=== PATIENT | female | born 1930 | race Caucasian/White ===

== ENCOUNTER 2017-04-07 20:17 | Inpatient (IN) | payer MEDICARE, MEDICAID ==
[~2017-04-07] VITALS: Ht 154.9 cm; Wt 65.8 kg
[2017-04-07 20:00] VITALS: BP 132/77
[2017-04-07] MEDS ORDERED: NA PHOS,M-B/NA PHOS,DI-BA ENEMA 118ML PR PRN (20:45)
[2017-04-07] MEDS ORDERED: HYDROCODONE/ACETAMINOPHEN 5/325MG TABLET PO PRN (20:45)
[2017-04-07] MEDS ORDERED: NON FORMULARY PATIENT HOME MED EA XX SCH (20:45)
[2017-04-07] MEDS ORDERED: ONDANSETRON HCL 4MG/2ML VIAL IV PRN (20:45)
[2017-04-07] MEDS ORDERED: LACTULOSE 20G/30ML UDC PO PRN (20:45)
[2017-04-07] MEDS ORDERED: DEXTROSE 50% WATER 50ML SYRINGE IV PRN (20:45)
[2017-04-07] MEDS ORDERED: INSULIN LISPRO 100 UNITS/ML SUBCUT SCH (21:00)
[2017-04-07 21:57] LABS: HEMATOCRIT 40.3 % (36.0-48.0); MEAN CORPUSCULAR HEMOGLOBIN 27.1 pg (28.0-32.0); PLATELET 186 x1000/uL (130-400); RED BLOOD CELL COUNT 4.81 mill/uL (4.2-5.4); RED CELL DISTRIBUTION WIDTH 16.5 % (11.6-14.6)
[2017-04-07 22:00] VITALS: BP 132/77
[2017-04-07] MEDS: LORAZEPAM 0.5MG TABLET PO SCH (22:23)
[2017-04-07] MEDS: BLOOD SUGAR DIAGNOSTIC STRIP TEST SCH (22:24)
[2017-04-07] MEDS: MIRTAZAPINE 15MG TABLET PO SCH (22:24)
[2017-04-07] MEDS: ATORVASTATIN CALCIUM 20MG TABLET PO SCH (22:24)
[2017-04-07] MEDS ORDERED: MIRT15TA6 PO (22:46)
[2017-04-07] MEDS ORDERED: NOVOLOG FLEXPEN SUBCUT (22:46)
[2017-04-07] MEDS ORDERED: DOCU-138 PO (22:46)
[2017-04-07] MEDS ORDERED: AMLO10TA80 PO (22:46)
[2017-04-07] MEDS ORDERED: LORA1TAB PO (22:46)
[2017-04-07] MEDS ORDERED: INSU3INS6 SUBCUT (22:46)
[2017-04-07] MEDS ORDERED: VALS320T9 PO (22:46)
[2017-04-07] MEDS ORDERED: CLOP75TA33 PO (22:46)
[2017-04-07] MEDS ORDERED: ATOR20TA PO (22:46)
[2017-04-07] MEDS: INSULIN DETEMIR UD 100 UNITS/ML SYR SUBCUT SCH (23:08)
[2017-04-07] MEDS: INSULIN LISPRO 100 UNITS/ML SUBCUT SCH (23:09)
[2017-04-08] MEDS: BLOOD SUGAR DIAGNOSTIC STRIP TEST SCH ×4 (06:01→21:19)
[2017-04-08] MEDS: INSULIN LISPRO 100 UNITS/ML SUBCUT SCH ×4 (06:22→21:19)
[2017-04-08 07:27] LABS: CHLORIDE 107 mEq/L (98-107)
[2017-04-08 07:43] LABS: CARBON DIOXIDE 30 mEq/L (21-32)
[2017-04-08 08:00] VITALS: BP 116/82
[2017-04-08 08:05] LABS: PREALBUMIN 14.3 mg/dL (20.0-40.0)
[2017-04-08] MEDS: PROPYLENE GLYCOL OP SCH ×2 (09:00→17:00)
[2017-04-08] MEDS: POLYETHYLENE GLYCOL 400 OP SCH ×2 (09:00→17:00)
[2017-04-08] MEDS: LOSARTAN POTASSIUM 100 MG TABLET PO SCH (09:00)
[2017-04-08] MEDS: KETOROLAC TROMETHAMINE 0.4% OPHTH 5ML EACHEYE SCH (09:19)
[2017-04-08] MEDS: ATROPINE SULFATE 1% OPHTH 2ML RIGHTEYE SCH (09:19)
[2017-04-08] MEDS: POLYETHYLENE GLYCOL 3350 (17GM) 1 DOSE PACK PO SCH (09:20)
[2017-04-08] MEDS: AMLODIPINE 10MG TABLET PO SCH (09:21)
[2017-04-08] MEDS: CLOPIDOGREL 75MG TABLET PO SCH (09:21)
[2017-04-08] MEDS: TORSEMIDE 10MG TABLET PO SCH (09:21)
[2017-04-08] MEDS: DOCUSATE SODIUM 100MG CAPSULE PO SCH ×2 (09:21→17:00)
[2017-04-08] MEDS: ACETAMINOPHEN 650MG/20.3ML UDC PO PRN ×2 (10:57→17:02)
[2017-04-08] MEDS: IPRATROPIUM/ALBUTEROL 0.5-3(2.5)MG/3ML NEB HHN SCH ×2 (13:20→21:04)
[2017-04-08] MEDS: ENOXAPARIN 40MG/0.4ML SYR SUBCUT SCH (17:05)
[2017-04-08 18:31] LABS: BG BASE EXCESS 2.1 mmol/L (-2.0-2.0); BG CARBOXYHEMOGLOBIN 0.5 % (0.5-1.5); BG DEOXYHEMOGLOBIN 15.1 % (0.0-5.0); BG FRACTION INSPIRED OXYGEN 21; BG HCO3 ACT 24.5 mmol/L (22.0-26.0); BG METHEMOGLOBIN 0.2 % (0.0-1.5); BG OXYGEN SATURATION 84.8 % (92.0-98.5); BG OXYHEMOGLOBIN 84.2 % (94.0-97.0); BG PCO2 31.9 mmHg (35.0-45.0); BG PH 7.503 (7.350-7.450); BG PO2 47.3 mmHg (75.0-100.0); BG SAMPLE SITE LEFT RADIAL; BG VENT MODE ROOM AIR
[2017-04-08 20:00] VITALS: BP 112/72
[2017-04-08] MEDS: MIRTAZAPINE 15MG TABLET PO SCH (21:17)
[2017-04-08] MEDS: ATORVASTATIN CALCIUM 20MG TABLET PO SCH (21:17)
[2017-04-08] MEDS: LORAZEPAM 0.5MG TABLET PO SCH (21:17)
[2017-04-08] MEDS: INSULIN DETEMIR UD 100 UNITS/ML SYR SUBCUT SCH (21:18)
[2017-04-09 03:25] LABS: CLARITY URINE CLEAR (CLEAR); COLOR URINE YELLOW (YELLOW); GLUCOSE URINE TRACE (NEGATIVE); KETONES URINE NEGATIVE (NEGATIVE); LEUKOCYTE ESTERASE URINE 1+ (NEGATIVE); NITRITE URINE NEGATIVE (NEGATIVE); OCCULT BLOOD URINE NEGATIVE (NEGATIVE); PH URINE 6.5 (4.5-8.0); PROTEIN URINE NEGATIVE (NEGATIVE); SPECIFIC GRAVITY URINE 1.017 (1.005-1.030)
[2017-04-09 06:27] LABS: BASOPHILS % 0.5 % (0.0-2.0); EOSINOPHILS % 2.4 % (0.0-5.0); HEMATOCRIT. 39.4 % (36.0-48.0); HEMOGLOBIN. 13.1 g/dL (12.0-16.0); LYMPHOCYTES % 22.6 % (20.0-50.0); MEAN CORPUSCULAR HEMOGLOBIN 27.8 pg (28.0-32.0); MEAN CORPUSCULAR VOLUME 83.6 fL (81.0-99.0); MONOCYTES % 13.6 % (2.0-8.0); NEUTROPHILS % 60.9 % (40.0-76.0); PLATELET 196 x1000/uL (130-400); RED BLOOD CELL COUNT 4.72 mill/uL (4.2-5.4); RED CELL DISTRIBUTION WIDTH 17.1 % (11.6-14.6)
[2017-04-09] MEDS: BLOOD SUGAR DIAGNOSTIC STRIP TEST SCH ×2 (06:36→11:15)
[2017-04-09] MEDS: INSULIN LISPRO 100 UNITS/ML SUBCUT SCH ×2 (06:50→13:40)
[2017-04-09 07:26] LABS: CARBON DIOXIDE 25 mEq/L (21-32); CHLORIDE 105 mEq/L (98-107)
[2017-04-09] MEDS: IPRATROPIUM/ALBUTEROL 0.5-3(2.5)MG/3ML NEB HHN SCH ×3 (07:38→16:20)
[2017-04-09 08:00] VITALS: BP 139/88
[2017-04-09] MEDS ORDERED: LIDOCAINE 5% PATCH TOP SCH (08:00)
[2017-04-09 08:54] LABS: BG BASE EXCESS -0.3 mmol/L (-2.0-2.0); BG CARBOXYHEMOGLOBIN 0.5 % (0.5-1.5); BG DEOXYHEMOGLOBIN 11.6 % (0.0-5.0); BG FRACTION INSPIRED OXYGEN 32; BG HCO3 ACT 21.3 mmol/L (22.0-26.0); BG METHEMOGLOBIN 0.2 % (0.0-1.5); BG OXYGEN SATURATION 88.3 % (92.0-98.5); BG OXYHEMOGLOBIN 87.7 % (94.0-97.0); BG PCO2 27.4 mmHg (35.0-45.0); BG PH 7.508 (7.350-7.450); BG PO2 52.2 mmHg (75.0-100.0); BG SAMPLE SITE RIGHT RADIAL; BG TOTAL HEMOGLOBIN 14.9 g/dL (12.0-18.0); BG VENT MODE NASAL CANNULA
[2017-04-09] MEDS: POLYETHYLENE GLYCOL 3350 (17GM) 1 DOSE PACK PO SCH (09:00)
[2017-04-09] MEDS: DOCUSATE SODIUM 100MG CAPSULE PO SCH (09:00)
[2017-04-09 09:15] LABS: T4 FREE 1.52 ng/dL (0.76-1.46)
[2017-04-09] MEDS: KETOROLAC TROMETHAMINE 0.4% OPHTH 5ML EACHEYE SCH (10:27)
[2017-04-09] MEDS: POLYETHYLENE GLYCOL 400 OP SCH (10:28)
[2017-04-09] MEDS: PROPYLENE GLYCOL OP SCH (10:28)
[2017-04-09] MEDS: ATROPINE SULFATE 1% OPHTH 2ML RIGHTEYE SCH (10:29)
[2017-04-09] MEDS: TORSEMIDE 10MG TABLET PO SCH (10:30)
[2017-04-09] MEDS: AMLODIPINE 10MG TABLET PO SCH (10:30)
[2017-04-09] MEDS: CLOPIDOGREL 75MG TABLET PO SCH (10:30)
[2017-04-09] MEDS: LOSARTAN POTASSIUM 100 MG TABLET PO SCH (10:30)
[2017-04-09] MEDS: ACETAMINOPHEN 500MG TABLET PO SCH ×2 (10:30→13:09)
[2017-04-09] MEDS: ENOXAPARIN 40MG/0.4ML SYR SUBCUT SCH (10:31)
[2017-04-09] MEDS ORDERED: ALPRAZOLAM 0.25 MG TABLET PO PRN (10:45)
[2017-04-09] MEDS ORDERED: BUDESONIDE 0.5MG/2ML NEB HHN SCH (11:00)
[2017-04-09] MEDS ORDERED: FLUTICASONE PROPIONATE 50MCG/SPRAY BOTTLE BOTHNSTRLS SCH (12:00)
[2017-04-09] MEDS: METHYLPREDNISOLONE SOD SUCC 40 MG/ML VIAL IV SCH ×2 (13:09→14:07)
[2017-04-09] MEDS ORDERED: MORPHINE SULFATE 2 MG/ML CPJ (NOT FOR IM USE) IV PRN (13:45)
[2017-04-09] MEDS ORDERED: LORAZEPAM 2MG/ML CPJ IV PRN (13:45)
[2017-04-09 13:54] VITALS: BP 139/88
[2017-04-09 14:00] LABS: HEPATITIS B SURFACE ANTIGEN NEGATIVE
[2017-04-09] MEDS ORDERED: IOHEXOL-350 100 ML BOTTLE ONE (14:08)
[2017-04-09] MEDS ORDERED: SODIUM CHLORIDE 0.9% 10ML VIAL ONE (14:08)
[2017-04-09 17:34] VITALS: BP 126/84
[2017-04-09] MEDS ORDERED: INSULIN DETEMIR UD 100 UNITS/ML SYR SUBCUT SCH (22:00)
== END 2017-04-09 16:10 | disposition short-term general hospital (02) | DRG 64 ==
PROVIDERS: ADMIT Physical Medicine & Rehabilitation Spinal Cord Injury Medicine; ATTEND Hospitalist
DX: I63.9 Cerebral infarction, unspecified (principal); J96.01 Acute respiratory failure with hypoxia; I69.351 Hemiplegia and hemiparesis following cerebral infarction affecting right dominant side; J98.11 Atelectasis; J44.1 Chronic obstructive pulmonary disease with (acute) exacerbation; E87.3 Alkalosis; D72.829 Elevated white blood cell count, unspecified; E11.9 Type 2 diabetes mellitus without complications; E78.00 Pure hypercholesterolemia, unspecified; E78.5 Hyperlipidemia, unspecified; H54.41 Blindness, right eye, normal vision left eye; I10 Essential (primary) hypertension; R13.10 Dysphagia, unspecified; R47.01 Aphasia; G89.29 Other chronic pain; M81.0 Age-related osteoporosis without current pathological fracture; R23.3 Spontaneous ecchymoses; R26.9 Unspecified abnormalities of gait and mobility; R47.1 Dysarthria and anarthria; Z90.710 Acquired absence of both cervix and uterus; Z90.49 Acquired absence of other specified parts of digestive tract
CPT/HCPCS: 36415; 36600; 70544; 70553; 71010; 71020; 71275; 80048; 80053; 80061; 81001; 82375; 82805; 82962; 84134; 84439; 84481; 85025; 85027; 86703; 86803; 87086; 87186; 87340; 92523; 92610; 93306; 93880; 93970; 94640; 97163; 97167; 97530; 97535; A4216; J1650; J1815; J2920; J7040; J7620; J7626; Q9967

== ENCOUNTER 2017-04-09 17:21 | Inpatient (IN) | payer MEDICARE, MEDICAID ==
[~2017-04-09] VITALS: Ht 165.1 cm; Wt 65.8 kg
[2017-04-09 17:00] VITALS: BP 126/84
[~2017-04-09 17:21] MED LIST: AMLO10TA80 PO; ATOR20TA PO; CLOP75TA33 PO; DOCU-138 PO; INSU3INS6 SUBCUT; LORA1TAB PO; MIRT15TA6 PO; NOVOLOG FLEXPEN SUBCUT; VALS320T9 PO
[2017-04-09 17:30] VITALS: BP 126/84
[2017-04-09] MEDS ORDERED: MORPHINE SULFATE 4 MG/ML CPJ (NOT FOR IM USE) IV PRN (18:45)
[2017-04-09] MEDS ORDERED: ONDANSETRON HCL 4MG/2ML VIAL IV PRN (18:45)
[2017-04-09 19:36] VITALS: BP 121/78
[2017-04-09] MEDS ORDERED: LORAZEPAM 1MG TABLET PO PRN (22:15)
[2017-04-10 00:18] VITALS: BP 133/71
[2017-04-10 04:26] VITALS: BP 128/82
[2017-04-10 08:00] VITALS: BP 120/78
[2017-04-10] MEDS ORDERED: ATORVASTATIN CALCIUM 20MG TABLET PO SCH (09:00)
[2017-04-10] MEDS ORDERED: AMLODIPINE 10MG TABLET PO SCH (09:00)
[2017-04-10] MEDS ORDERED: DOCUSATE SODIUM 100MG CAPSULE PO SCH (09:00)
[2017-04-10] MEDS ORDERED: DIATR MEGLU/DIATRIZOATE SOLN 30ML PO SCH (10:30)
[2017-04-10 12:00] VITALS: BP 140/83
[2017-04-10] MEDS ORDERED: DEXTROSE 50% WATER 50ML SYRINGE IV PRN (14:15)
[2017-04-10 16:00] VITALS: BP 139/88
[2017-04-10] MEDS ORDERED: BLOOD SUGAR DIAGNOSTIC STRIP TEST SCH (17:20)
[2017-04-10] MEDS ORDERED: INSULIN LISPRO 100 UNITS/ML SUBCUT NR (17:45)
[2017-04-10] MEDS ORDERED: INSULIN LISPRO 100 UNITS/ML SUBCUT SCH (17:50)
[2017-04-10 17:58] VITALS: BP 139/88
[2017-04-10] MEDS ORDERED: INSULIN DETEMIR UD 100 UNITS/ML SYR SUBCUT NR (18:45)
[2017-04-10] MEDS ORDERED: LEVETIRACETAM 250MG TABLET PO SCH (21:00)
== END 2017-04-10 19:15 | disposition hospice, home (50) | DRG 64 ==
LOC: 6EST 17:21
PROVIDERS: ADMIT Hospitalist; ATTEND Hospitalist
DX: I63.9 Cerebral infarction, unspecified (principal); J96.01 Acute respiratory failure with hypoxia; G81.91 Hemiplegia, unspecified affecting right dominant side; E87.3 Alkalosis; J44.1 Chronic obstructive pulmonary disease with (acute) exacerbation; J98.11 Atelectasis; R47.1 Dysarthria and anarthria; R13.10 Dysphagia, unspecified; D72.829 Elevated white blood cell count, unspecified; E11.9 Type 2 diabetes mellitus without complications; E78.00 Pure hypercholesterolemia, unspecified; E78.5 Hyperlipidemia, unspecified; G89.29 Other chronic pain; I25.10 Atherosclerotic heart disease of native coronary artery without angina pectoris; Z66 Do not resuscitate; R47.01 Aphasia; D49.89 Neoplasm of unspecified behavior of other specified sites; R26.9 Unspecified abnormalities of gait and mobility; I10 Essential (primary) hypertension; M81.0 Age-related osteoporosis without current pathological fracture; H54.41 Blindness, right eye, normal vision left eye; Z90.49 Acquired absence of other specified parts of digestive tract; Z90.710 Acquired absence of both cervix and uterus
CPT/HCPCS: 36415; 70552; 82947; 82962; 92523; 92610; 97162; J1815